=== PATIENT | male | born 1965 | race Caucasian/White ===

== ENCOUNTER 2017-04-04 07:21 | Emergency (ER) | payer BC ==
[2017-04-04 07:36] VITALS: BP 142/96
[2017-04-04] MEDS ORDERED: Ketorolac 60 MG/2 ML SDV IM ONE (07:53)
[2017-04-04 08:35] LABS: CHLORIDE,CL 102 mEq/L (98-106); SODIUM,NA 141 mEq/L (136-145)
--- NOTE | 2017-04-04 08:52 | EDM.PDOC ---
ED HPI GENERAL MEDICAL PROBLEM - General Chief Complaint: General Stated Complaint: right upper back/neck pain/spasms Time Seen by Provider: 04/04/17 07:43 Source of Information: Reports: Patient History Limitations: Reports: No Limitations - History of Present Illness INITIAL COMMENTS - FREE TEXT/NARRATIVE: Omar foley a 51 year old male who presents to the ED with sudden onset muscle spasm/cramp in his right upper back/shoulder area. He reports he arrived to work and had this sudden onset spasm. He complains of significant pain. Has "never had pain this bad." He did take some oral toradol shortly prior to ER presentation. He denies any injury to the affected area. Does not believe he slept on it wrong. He does not have any other associated symtpoms. Denies any chest pain, shortness of breath, dizziness. Onset: Sudden Onset Time: 07:00 Duration: Constant Location: Reports: Neck, Back, Upper Extremity, Right Quality: Reports: Sharp, Other (spasm) Severity: Severe Improves with: Reports: None Worsens with: Reports: Movement Associated Symptoms: Reports: No Other Symptoms. 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) Right Upper Back Pain Score (Numeric/FACES): 10 - Related Data Allergies Allergy/AdvReac Type Severity Reaction Status Date / Time acetaminophen [From Tylenol] Allergy Jaundice Verified 04/04/17 21:12 morphine Allergy Nausea and Uncoded 04/04/17 21:12 Vomiting Home Meds: Home Meds Lactobacillus Combo No.11 [Probiotic] 1 each PO DAILY 10/12/13 [History] Multivitamin with Minerals [Multiple Vitamin] 1 tab PO DAILY 10/12/13 [History] Venlafaxine HCl 75 mg PO BID 10/12/13 [History] metFORMIN [Glucophage] 1,000 mg PO BID 10/12/13 [History] traZODone 100 mg PO BEDTIME 12/22/13 [History] Allopurinol [Zyloprim] 300 mg PO DAILY 04/04/17 [History] Cyclobenzaprine [Flexeril] 10 mg PO TID PRN #20 tablet 04/04/17 [Rx] Hydrochlorothiazide 25 mg PO DAILY 04/04/17 [History] Neutragenics 2 cap PO DAILY 04/04/17 [History] [place]-3/DHA/Epa/Fish Oil [Fish Oil 1,000 mg Softgel] 2,000 mg PO DAILY 04/04/17 [History] Prednisone [IMW: predniSONE] 40 mg PO WITHBREAKFAST #10 tab 04/04/17 [Rx] Past Medical History Endocrine/Metabolic History: Reports: Diabetes, Type II - Past Surgical History GI Surgical History: Reports: Cholecystectomy Male Surgical History: Reports: Lithotripsy (ESWL) Other Musculoskeletal Surgeries/Procedures:: achilles tendon repair, torn meniscis Social & Family History - Tobacco Use Smoking Status *Q: Never Smoker Years of Tobacco use: 15 Used Tobacco, but Quit: Yes Month Tobacco Last Used: 0 - Alcohol Use Days Per Week of Alcohol Use: 0 - Recreational Drug Use Recreational Drug Use: No - Living Situation & Occupation Living situation: Reports: , with Spouse Occupation: Employed ED ROS GENERAL - Review of Systems Review Of Systems: ROS reveals no pertinent complaints other than HPI. ED EXAM, GENERAL - Physical Exam Exam: See Below Exam Limited By: No Limitations General Appearance: Alert, WD/WN, Anxious, Moderate Distress Neck: Normal Inspection, Supple, Non-Tender, Full Range of Motion Respiratory/Chest: No Respiratory Distress, Lungs Clear, Normal Breath Sounds, No Accessory Muscle Use, Chest Non-Tender Cardiovascular: Normal Peripheral Pulses, Regular Rate, Rhythm, No Edema, No Gallop, No JVD, No Murmur, No Rub Extremities: Normal Inspection, Normal Range of Motion, No Pedal Edema, Normal Capillary Refill, Other (tendernes to Right neck/shoulder, tense area) Neurological: Alert, Oriented, CN II-XII Intact, Normal Cognition, Normal Gait, Normal Reflexes, No Motor/Sensory Deficits Psychiatric: Anxious Course - Vital Signs Last Recorded V/S: Last Vital Signs Temp 98.3 F 04/04/17 07:25 Pulse 81 04/04/17 07:25 Resp 20 04/04/17 07:25 BP 142/96 H 04/04/17 07:25 Pulse Ox 98 04/04/17 07:25 - Orders/Labs/Meds Labs: Laboratory Tests 04/04/17 04/04/17 Range/Units 08:07 08:10 WBC 6.8 (5.0-10.0) 10^3/uL RBC 5.06 (4.50-6.00) 10^6/uL Hgb 15.5 (14.0-18.0) g/dL Hct 43.7 (40.0-54.0) % MCV 86.4 (82.0-94.0) fL MCH 30.6 (27.0-32.0) pg MCHC 35.5 (33.0-38.0) g/dL RDW Coeff of Tony 12.2 (11.0-15.0) % Plt Count 221 (150-400) 10^3/uL Neut % (Auto) 54.1 (35-85) % Lymph % (Auto) 32.3 (10-55) % [place] % (Auto) 8.4 (0-16) % Eos % (Auto) 4.3 (0-5) % Baso % (Auto) 0.9 (0-3) % Neut # (Auto) 3.67 (1.80-7.00) 10^3/uL Lymph # (Auto) 2.19 (1.00-4.80) 10^3/uL [place] # (Auto) 0.57 (0.00-0.80) 10^3/uL Eos # (Auto) 0.29 (0.00-0.45) 10^3/uL Baso # (Auto) 0.06 10^3/uL Sodium 141 (136-145) mEq/L Potassium 3.6 (3.5-5.0) mEq/L Chloride 102 (98-106) mEq/L Carbon Dioxide 25 (21-32) mmol/L BUN 16 (7-18) mg/dL Creatinine 1.0 (0.7-1.3) mg/dL Est Cr Clr Drug Dosing 102.10 mL/min Estimated GFR (MDRD) > 60 (>=60) mL/min Glucose 221 H D (75-99) mg/dL Calcium 8.5 (8.4-10.1) mg/dL Total Bilirubin 0.5 (0.0-1.0) mg/dL AST 21 (15-37) U/L ALT 47 (12-78) U/L Alkaline Phosphatase 75 (46-116) U/L Lactate Dehydrogenase 135 (100-190) U/L Creatine Kinase 121 (35-232) U/L Troponin I < 0.017 (0.00-0.06) ng/mL C-Reactive Protein < 0.2 L (0.2-0.8) mg/dL Total Protein 7.7 (6.4-8.2) g/dL Albumin 3.6 (3.4-5.0) g/dL Meds: Medications Discontinued Medications Generic Name Dose Route Start Last Admin Trade Name Kayleigh PRN Reason Stop Dose Admin Ketorolac Tromethamine 60 mg 04/04/17 07:53 04/04/17 08:20 Toradol IM 04/04/17 07:54 Not Given ONETIME ONE Orphenadrine Citrate Confirm 04/04/17 07:37 04/04/17 07:49 Norflex Administered 04/04/17 07:38 Not Given Dose 60 mg .ROUTE .STK-MED ONE Orphenadrine Citrate 60 mg 04/04/17 07:48 04/04/17 07:48 Norflex IM 04/04/17 07:49 60 mg NOW STA Administration - Re-Assessments/Exams Free Text/Narrative Re-Assessment/Exam: Patient reports Norflex helped pain some. Does still have pain in that area. He has been trying to stretch it. Reports if he holds his arms above his head the pain is improved. Will get lab work. Lab work all stable. No obvious cause for muscle spasm. Departure - Departure Time of Disposition: 08:48 Disposition: Home, Self-Care 01 Condition: Good Clinical Impression: Muscle spasm of right shoulder, Back spasm - Discharge Information Prescriptions: Cyclobenzaprine [Flexeril] 10 mg PO TID PRN #20 tablet PRN Reason: Muscle Spasm Referrals: Georgia Holland PA-C [Primary Care Provider] - Forms: ED Department Discharge Additional Instructions: Flexeril three times daily as needed for muscle spasm Push fluids Toradol as needed for pain Stretch neck and shoulder Recommend massage to affected area Follow up with PCP
== END 2017-04-04 09:02 | disposition home or self-care (01) ==
LOC: CC.ED 07:21
DX: M62.830 Muscle spasm of back (principal); M62.838 Other muscle spasm; E11.9 Type 2 diabetes mellitus without complications; Z87.891 Personal history of nicotine dependence; Z79.84 Long term (current) use of oral hypoglycemic drugs; Z79.899 Other long term (current) drug therapy; Z88.5 Allergy status to narcotic agent; Z88.6 Allergy status to analgesic agent
CPT/HCPCS: 36415; 80053; 82550; 83615; 84484; 85025; 86140; 96372; 99283; J2360

== ENCOUNTER 2017-04-04 20:52 | Emergency (ER) | payer BC ==
[2017-04-04 21:09] VITALS: BP 147/97
[2017-04-04] MEDS ORDERED: fentaNYL 100 MCG/2 ML SDV IM ONE (21:54)
[2017-04-04] MEDS ORDERED: Take Home: traMADol 50 MG, 4 Tab Pack PO ONE (21:55)
--- NOTE | 2017-04-04 22:02 | EDM.PDOC ---
ED HPI GENERAL MEDICAL PROBLEM - General Chief Complaint: Upper Extremity Injury/Pain Stated Complaint: "RIGHT SHOULDER PAIN" Time Seen by Provider: 04/04/17 21:21 Source of Information: Reports: Patient History Limitations: Reports: No Limitations - History of Present Illness INITIAL COMMENTS - FREE TEXT/NARRATIVE: Kan is a 51 yo male who presents to the ER with ongoing complaints of right shoulder pain. States he was seen this morning in the ER as well and was told he had a shoulder strain. Was given a shot of Toradol and advised to take Flexeril. He admits he was fine this morning upon waking up and didn't notice any discomfort until he got to work. Admits he tried going home after his initial ER visit and rest, stretch and apply heat to it without any relief. Admits if he drops his arm to his side the pain intensifies. Rates the pain at his side a 12 out of 10 scale. If he raises it up and rests it on his head the pain improves significantly. He denies any history of cervical/neck/shoulder problems in the past. 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) (muscle relaxer, heat) Right Upper Back Pain Score (Numeric/FACES): 10 - Related Data Allergies Allergy/AdvReac Type Severity Reaction Status Date / Time acetaminophen [From Tylenol] Allergy Jaundice Verified 04/04/17 21:12 morphine Allergy Nausea and Uncoded 04/04/17 21:12 Vomiting Home Meds: Home Meds Lactobacillus Combo No.11 [Probiotic] 1 each PO DAILY 10/12/13 [History] Multivitamin with Minerals [Multiple Vitamin] 1 tab PO DAILY 10/12/13 [History] Venlafaxine HCl 75 mg PO BID 10/12/13 [History] metFORMIN [Glucophage] 1,000 mg PO BID 10/12/13 [History] traZODone 100 mg PO BEDTIME 12/22/13 [History] Allopurinol [Zyloprim] 300 mg PO DAILY 04/04/17 [History] Cyclobenzaprine [Flexeril] 10 mg PO TID PRN #20 tablet 04/04/17 [Rx] Hydrochlorothiazide 25 mg PO DAILY 04/04/17 [History] Neutragenics 2 cap PO DAILY 04/04/17 [History] [place]-3/DHA/Epa/Fish Oil [Fish Oil 1,000 mg Softgel] 2,000 mg PO DAILY 04/04/17 [History] Prednisone [IMW: predniSONE] 40 mg PO WITHBREAKFAST #10 tab 04/04/17 [Rx] Past Medical History Endocrine/Metabolic History: Reports: Diabetes, Type II - Past Surgical History GI Surgical History: Reports: Cholecystectomy Male Surgical History: Reports: Lithotripsy (ESWL) Other Musculoskeletal Surgeries/Procedures:: achilles tendon repair, torn meniscis Social & Family History - Tobacco Use Smoking Status *Q: Never Smoker Years of Tobacco use: 15 Used Tobacco, but Quit: Yes Month Tobacco Last Used: 0 Second Hand Smoke Exposure: No - Alcohol Use Days Per Week of Alcohol Use: 0 - Recreational Drug Use Recreational Drug Use: No - Living Situation & Occupation Living situation: Reports: , with Spouse Occupation: Employed Review of Systems - Review of Systems Review Of Systems: ROS reveals no pertinent complaints other than HPI. Musculoskeletal: Reports: Neck Pain, Shoulder Pain Neurological: Denies: Numbness, Paresthesia, Tingling, Weakness ED EXAM, GENERAL - Physical Exam Exam: See Below Exam Limited By: No Limitations General Appearance: Alert, No Apparent Distress Neck: No: Tender Lateral, Tender Midline Back Exam: Other (increased discomfort with left lateral rotation of cervical spine). No: Vertebral Tenderness Extremities: Normal Range of Motion, Arm Pain (pain radiates from right lateral neck down into proximal humerus), Other (normal strength to right upper extremity) Neurological: No Motor/Sensory Deficits Psychiatric: Normal Affect, Normal Mood Skin Exam: Warm, Dry, Intact Course - Vital Signs Last Recorded V/S: Last Vital Signs Temp 95.7 F 04/04/17 21:07 Pulse 80 04/04/17 21:07 Resp 20 04/04/17 21:07 BP 147/97 H 04/04/17 21:07 Pulse Ox 99 04/04/17 21:07 - Orders/Labs/Meds Orders: Active Orders 24 hr Category Date Time Status Cervical Spine Min 4V [CR] Stat Exams 04/04/17 21:19 Taken Meds: Medications Discontinued Medications Generic Name Dose Route Start Last Admin Trade Name Freq PRN Reason Stop Dose Admin Fentanyl 50 mcg 04/04/17 21:54 Sublimaze IM 04/04/17 21:55 ONETIME ONE Tramadol HCl 2 packet 04/04/17 21:55 Take Home: Tramadol 50 Mg, 4 Tab Pack PO 04/04/17 21:56 ONETIME ONE Departure - Departure Time of Disposition: 22:05 Disposition: Home, Self-Care 01 Condition: Good Clinical Impression: Pinched nerve in neck - Discharge Information Prescriptions: Prednisone [IMW: predniSONE] 40 mg PO WITHBREAKFAST #10 tab Referrals: Georgia Holland PA-C [Primary Care Provider] - Additional Instructions: 1) Physical therapy referral 2) Tramadol 50mg - 1 tablet every 4 hours as needed for pain 3) Prednisone 20mg - 2 tablets daily for 5 days 4) Increase water intake 5) Rest and heat as needed 6) Follow up with primary tomorrow for scheduling MRI of cervical spine. - Problem List & Annotations (1) Pinched nerve in neck SNOMED Code(s): 28613117 Code(s): G58.8 - OTHER SPECIFIED MONONEUROPATHIES Status: Acute Current Visit: Yes - Problem List Review Problem List Initiated/Reviewed/Updated: Yes - My Orders Last 24 Hours: My Active Orders 04/04/17 21:19 Cervical Spine Min 4V [CR] Stat - Assessment/Plan Last 24 Hours: My Active Orders 04/04/17 21:19 Cervical Spine Min 4V [CR] Stat Plan: See additional instructions. X-rays showed degenerative changes. Will have follow up with PCP for further evaluation and possible MRI. Physical therapy referral given as well.
== END 2017-04-04 22:15 | disposition home or self-care (01) ==
LOC: CC.ED 20:52
DX: G58.8 Other specified mononeuropathies (principal); E11.9 Type 2 diabetes mellitus without complications; Z87.891 Personal history of nicotine dependence; Z79.84 Long term (current) use of oral hypoglycemic drugs; Z79.899 Other long term (current) drug therapy; Z88.5 Allergy status to narcotic agent; Z88.6 Allergy status to analgesic agent; M62.830 Muscle spasm of back; M62.838 Other muscle spasm
CPT/HCPCS: 36415; 72050; 80053; 82550; 83615; 84484; 85025; 86140; 96372; 99283; A9270; J2360; J3010

== ENCOUNTER 2024-04-09 09:00 | Emergency (ER) | payer OTHER ==
[2024-04-09 09:27] VITALS: BP 170/88; PULSE 70
[2024-04-09 09:27] LABS: BASOPHILS ABSOLUTE AUTO 0.06 10^3/uL (0.00-0.50); BASOPHILS PERCENT AUTO 1.1 % (0-1); EOSINOPHILS ABSOLUTE AUTO 0.34 10^3/uL (0.00-1.50); EOSINOPHILS PERCENT AUTO 6.1 % (0-6); HEMATOCRIT 40.6 % (42.0-52.0); IMMATURE GRAN ABSOLUTE AUTO 0.01 10^3/uL (0.00-0.49); IMMATURE GRAN PERCENT AUTO 0.2 % (0.0-4.9); LYMPHOCYTES ABSOLUTE AUTO 1.44 10^3/uL (0.60-5.00); LYMPHOCYTES PERCENT AUTO 25.9 % (24-44); MEAN CORPUSCULAR HEMOGLOBIN 29.9 pg (27.0-32.0); MEAN CORPUSCULAR HGB CONC 34.5 g/dL (32.0-36.0); MEAN CORPUSCULAR VOLUME 86.8 fL (83.0-97.0); NEUTROPHILS ABSOLUTE AUTO 3.22 x10^3/uL (1.80-8.00); NEUTROPHILS PERCENT AUTO 57.7 % (41-71); PLATELET COUNT,PLT 203 10^3/uL (150-400); RED BLOOD CELL COUNT 4.68 x10^6/uL (4.50-6.00); WHITE BLOOD CELL COUNT,WBC 5.6 10^3/uL (4.0-11.0)
[2024-04-09 09:37] LABS: ALBUMIN 3.5 g/dL (3.4-5.0); BILIRUBIN TOTAL 0.5 mg/dL (0.0-1.0); CALCIUM 8.5 mg/dL (8.4-10.1); EST CRCL DRUG DOSING (CG) 93.89 mL/min; MAGNESIUM 1.5 mg/dL (1.8-2.4); POTASSIUM,K 4.1 mEq/L (3.5-5.0); PROTEIN TOTAL,TP 7.1 g/dL (6.4-8.2)
[2024-04-09 10:07] LABS: INR 0.98 (0.92-1.18); PROTHROMBIN TIME 10.3 SEC (9.3-11.3)
[2024-04-09 10:47] LABS: PTT,PARTIAL THROMBOPLSTIN TIME 25.8 SEC (20.0-30.0)
== END 2024-04-09 10:30 | disposition home or self-care (01) ==
LOC: CC.ED 09:00
DX: R07.2 Precordial pain (principal); E11.9 Type 2 diabetes mellitus without complications; Z90.49 Acquired absence of other specified parts of digestive tract; Z88.8 Allergy status to other drugs, medicaments and biological substances; Z79.84 Long term (current) use of oral hypoglycemic drugs; Z79.899 Other long term (current) drug therapy
CPT/HCPCS: 36415; 71046; 80053; 83690; 83735; 84484; 85025; 85610; 85730; 87428-QW; 93005; 99285

== ENCOUNTER 2024-08-25 09:28 | Emergency (ER) | payer OTHER ==
[2024-08-25] MEDS: diazePAM 10 MG/2 ML Syringe IM ONE (10:12)
[2024-08-25 10:14] LABS: BASOPHILS ABSOLUTE AUTO 0.07 10^3/uL (0.00-0.50); BASOPHILS PERCENT AUTO 0.9 % (0-1); EOSINOPHILS ABSOLUTE AUTO 0.28 10^3/uL (0.00-1.50); EOSINOPHILS PERCENT AUTO 3.7 % (0-6); HEMATOCRIT 43.6 % (42.0-52.0); HEMOGLOBIN 15.6 g/dL (14.0-18.0); IMMATURE GRAN ABSOLUTE AUTO 0.02 10^3/uL (0.00-0.49); IMMATURE GRAN PERCENT AUTO 0.3 % (0.0-4.9); LYMPHOCYTES ABSOLUTE AUTO 1.91 10^3/uL (0.60-5.00); LYMPHOCYTES PERCENT AUTO 25.3 % (24-44); MEAN CORPUSCULAR HEMOGLOBIN 30.8 pg (27.0-32.0); MEAN CORPUSCULAR HGB CONC 35.8 g/dL (32.0-36.0); MEAN CORPUSCULAR VOLUME 86.2 fL (83.0-97.0); MONOCYTES ABSOLUTE AUTO 0.62 10^3/uL (0.00-1.50); MONOCYTES PERCENT AUTO 8.2 % (0-10); NEUTROPHILS ABSOLUTE AUTO 4.65 x10^3/uL (1.80-8.00); NEUTROPHILS PERCENT AUTO 61.6 % (41-71); PLATELET COUNT,PLT 234 10^3/uL (150-400); RED BLOOD CELL COUNT 5.06 x10^6/uL (4.50-6.00); WHITE BLOOD CELL COUNT,WBC 7.6 10^3/uL (4.0-11.0)
[2024-08-25 10:32] LABS: ALBUMIN 3.8 g/dL (3.4-5.0); BILIRUBIN TOTAL 0.9 mg/dL (0.0-1.0); CALCIUM 9.7 mg/dL (8.4-10.1); EST CRCL DRUG DOSING (CG) 92.72 mL/min; MAGNESIUM 1.4 mg/dL (1.8-2.4); POTASSIUM,K 4.1 mEq/L (3.5-5.0); PROTEIN TOTAL,TP 7.8 g/dL (6.4-8.2)
[2024-08-25] MEDS ORDERED: Magnesium Sulfate 2 GM/50 mL 2 GM in Premix Bag 1 BAG IV ONE (10:34)
[2024-08-25] MEDS: Take Home: LORazepam 0.5 MG Tab, 2 Tab Pack PO ONE (11:05)
[2024-08-25] MEDS: Magnesium Oxide 400 MG Tab PO ONE (11:05)
[2024-08-25] MEDS: Take Home: LORazepam 0.5 MG Tab, 2 Tab Pack ONE (11:13)
[2024-08-25 11:28] VITALS: BP 159/79; PULSE 98
== END 2024-08-25 11:27 | disposition home or self-care (01) ==
LOC: CC.ED 09:28
DX: F41.9 Anxiety disorder, unspecified (principal); E11.9 Type 2 diabetes mellitus without complications; Z90.49 Acquired absence of other specified parts of digestive tract; Z88.6 Allergy status to analgesic agent; Z79.84 Long term (current) use of oral hypoglycemic drugs; Z79.899 Other long term (current) drug therapy
CPT/HCPCS: 36415; 80053; 83735; 84484; 85025; 93005; 93010; 96372; 99283; 99284; A9270-GY; J3360